=== PATIENT | male | born 1995 | race Caucasian/White ===

== ENCOUNTER 2020-09-15 20:16 | Emergency (ER) | payer BC ==
[~2020-09-15] VITALS: Ht 165.1 cm; Wt 79.4 kg
[2020-09-15 20:16] VITALS: BP 126/105
[2020-09-15] MEDS ORDERED: ONDA4TAB5 PO (20:49)
[2020-09-15] MEDS ORDERED: ONDANSETRON 4 MG TAB.RAPDIS SL ONE (21:00)
[2020-09-15] MEDS ORDERED: ONDANSETRON 4 MG TAB.RAPDIS ONE (21:07)
== END 2020-09-15 22:04 | disposition home or self-care (01) ==
LOC: ER 20:26
DX: R11.2 Nausea with vomiting, unspecified (principal); R19.7 Diarrhea, unspecified; Z90.89 Acquired absence of other organs
CPT/HCPCS: 99283; Q0162